=== PATIENT | female | born 1935 | race Caucasian/White ===

== ENCOUNTER 2019-11-10 15:19 | Inpatient (IN) | payer MEDICARE, MEDICAID, SELFPAY ==
[2019-11-10 15:20] VITALS: BMI 27.0
[2019-11-10 15:24] VITALS: BP 193/99; PULSE 93; RESP 20; TEMP 37.7; O2SAT 90
--- NOTE | 2019-11-10 15:26 | XRR_ITS ---
PROCEDURE INFORMATION: Exam: XR Chest, 1 View Exam date and time: 11/10/2019 3:58 PM Age: 84 years old Clinical indication: Fever TECHNIQUE: Imaging protocol: XR of the chest Views: 1 view. COMPARISON: No relevant prior studies available. FINDINGS: Lungs: Unremarkable. No consolidation. Pleural space: Unremarkable. No pleural effusion. No pneumothorax. Heart/Mediastinum: Unremarkable. No cardiomegaly. Bones/joints: Unremarkable. XR/XR chest 1V portable [id number] IMPRESSION: No acute findings.
--- NOTE | 2019-11-10 15:26 | CTR_ITS ---
PROCEDURE INFORMATION: Exam: CT Head Without Contrast Exam date and time: 11/10/2019 4:01 PM Age: 84 years old Clinical indication: Altered mental status/memory loss and fever TECHNIQUE: Imaging protocol: Computed tomography of the head without contrast. Axial, coronal and sagittal reformatted images were created and reviewed. Radiation optimization: All CT scans at this facility use at least one of these dose optimization techniques: automated exposure control; mA and/or kV adjustment per patient size (includes targeted exams where dose is matched to clinical indication); or iterative reconstruction. COMPARISON: No relevant prior studies available. RADIATION DOSE METRICS: Total DLP (mGy-cm): 1386.99 FINDINGS: Brain: Right occipital encephalomalacia, consistent with remote ischemia. Patchy areas of hypoattenuation in the periventricular and subcortical white matter, consistent with chronic small vessel ischemic disease. Focal, well-circumscribed hypodensities in the basal ganglia and thalami, consistent with chronic lacunar infarcts. No CT evidence of acute intracranial hemorrhage or acute territorial infarction. No significant mass effect or midline shift. Basal cisterns patent. Ventricles: Prominence of the cortical sulci, cisterns and ventricular system, consistent with cerebral and cerebellar volume loss. Bones/joints: No acute osseous abnormality. Sinuses: Mild ethmoid mucosal thickening. Mild right sphenoid sinus mucosal thickening. Mastoid air cells: Minimal opacification of the right mastoid air cells. Vasculature: Calcific atherosclerotic disease in the cavernous internal carotid arteries, as well as the vertebro-basilar system. Soft tissues: Grossly unremarkable. CT/CT head wo con* [id number]: 1. No CT evidence of acute intracranial pathology. 2. Additional findings, as above. Radiation Dose CTDIVOL = (mGy): DLP = 1386.99 (mGy-cm)
--- NOTE | 2019-11-10 15:27 | ECG_ITS ---
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 Measurements Intervals [place] Rate: 93 P: 84 UT: 152 QRS: 68 QRSD: 146 T: 11 QT: 366 QTc: 456 Interpretive Statements SINUS RHYTHM INDETERMINATE AXIS RIGHT BUNDLE BRANCH BLOCK [120+ ms QRS DURATION, UPRIGHT V1, 40+ ms S IN I/aVL/V4/V5/V6] No previous ECG available for comparison Electronically Signed On 11-10-2019 16:55:53 CDT by Dereje Whitman M.D. [id number]
--- NOTE | 2019-11-10 15:29 | ED_ITS ---
HPI - Fever General: Chief Complaint: Fever Stated Complaint: FEVER Time Seen by Provider: 11/10/19 15:20 Source: patient and EMS Mode of arrival: EMS Limitations: altered mental status History of Present Illness: HPI Narrative: 84-year-old female who is here from group home with altered mental status along with a fever. She does have a history of dementia and is currently at her baseline. Per group home patient had a temperature there of 101 and had a period of confusion and unresponsiveness. Patient denies any pain or cough. She denies headache or neck pain. She denies any worsening or improving factors. Review of Systems General: Reports: ROS unobtainable due to mental status Const: Reports: fever(s) PFSH ED PFSH: Medical History (Updated 11/10/19 @ 19:00 by Obi Lee MD) Adult onset hypothyroidism Alcoholic dementia Cardiac murmur, unspecified Coagulopathy, thrombocytopenia, transient, remote, resolved Essential (primary) hypertension Lives in assisted living facility Urge incontinence Vitamin D deficiency Walker as ambulation aid Surgical History No pertinent past surgical history Family History Family/Other In good health Social History Smoking and tobacco status: former smoker Quit status (tobacco): has quit using tobacco Alcohol intake: former Year of sobriety/quit date alcohol: 2017 Former alcohol use details: >4 drinks daily Housing: Assisted Living Facility Current gender identity: Female Physical Exam Const: COMMON NORMALS: no acute distress, healthy appearing and alert; negative for patient oriented x3 ORIENTATION/CONSCIOUSNESS: Yes oriented to person; not oriented to place and not oriented to time HENMT: COMMON NORMALS: normocephalic and atraumatic HEAD & SCALP: normocephalic and atraumatic Eye: COMMON NORMALS: Equal, round and reactive pupils present and EOMs intact bilaterally PUPIL: Yes Equal, round and reactive pupils present Neck/C-Spine: COMMON NORMALS: full ROM and supple Chest: COMMONS NORMALS: normal inspection of the chest and normal palpation of entire chest wall Resp: COMMON NORMALS: normal respiratory effort, No retractions, No use of accessory muscles and clear to auscultation bilaterally AUSCULTATION: clear to auscultation bilaterally Cardio: COMMON NORMALS: regular rate and regular rhythm RATE: regular rate RHYTHM: regular rhythm HEART SOUNDS: Murmur heart sound present GI: COMMON NORMALS: Normal to inspection, nondistended, normoactive bowel sounds present, Soft to palpation, non-tender and no masses PALPATION: Yes Soft to palpation Extremity: COMMON NORMALS: normal to inspection and full ROM Neuro: COMMON NORMALS: moves all extremities and no focal motor deficits; negative for patient oriented x3 SENSORIUM/ORIENTATION: Yes alert, Yes shante ented to person, No oriented to place and No oriented to time Psych: COMMON NORMALS: mental status grossly normal, Normal thought process present and cooperative THOUGHT PROCESS: Normal thought process present Skin: COMMON NORMALS: no rashes or lesions noted and no wounds GENERAL SKIN EXAM: no rashes or lesions noted Course Vital Signs: Vital signs: Vital Signs Temperature 99.9 F H 11/10/19 15:24 Pulse Rate 88 11/10/19 18:11 Respiratory Rate 20 H 11/10/19 18:11 Blood Pressure 128/70 11/10/19 18:11 Pulse Oximetry 95 11/10/19 18:11 MDM - Fever MDM Narrative: Medical decision making narrative: Patient presents here with fever along with altered mental status. Patient has no headache or neck pain. Patient has no signs of meningitis. Patient started on IV antibiotics. Patient seen by Dr. Rodriguez who is admitting. Lab Data: Labs: Lab Results 11/10/19 11/10/19 11/10/19 Range/Units 15:30 15:30 15:30 WBC 7.1 (4.0-10.0) 10^3/ uL RBC 3.64 L (4.1-5.3) 10^6/u L Hgb 10.9 L (11.5-15.3) g/dL Hct 34.3 L (37.0-47.0) % MCV 94.2 (81-99) fL MCH 29.9 (28.0-34.0) pg MCHC 31.8 (30.0-36.0) g/dL RDW 12.7 (12.1-15.1) % Plt Count 105 L (130-400) 10^3/c mm MPV 10.1 (7.4-10.4) fL Neut % (Auto) 74.5 % Lymph % (Auto) 14.3 % [place] % (Auto) 10.4 % Eos % (Auto) 0.3 % Baso % (Auto) 0.4 % Neut # (Auto) 5.3 (1.8-7.7) 10^3/u L Lymph # (Auto) 1.0 (0.8-4.8) 10^3/u L [place] # (Auto) 0.7 (0.2-0.9) 10^3/u L Eos # (Auto) 0.0 (0.0-0.8) 10^3/u L Baso # (Auto) 0.0 (0.0-0.1) 10^3/u L Nucleated RBC % (a uto) 0 % Nucleated RBCs # 0.0 /100WBC Sodium 139 (136-145) mmol/L Potassium 4.4 (3.5-5.1) mmol/L Chloride 99 (98-107) mmol/L Carbon Dioxide 27 (22-29) mmol/L Anion Gap 17.4 (5-19) BUN 24 H (8-23) mg/dL Creatinine 1.5 H (0.5-0.9) mg/dL Glucose 162 H (65-115) mg/dL Calculated Osmolal ity 288 (285-295) mOsm/k g Lactate 0.6 (0.5-2.2) mmol/L Calcium 9.7 (8.5-10.5) mg/dL Total Bilirubin 0.4 (0.15-1.2) mg/dL AST 11 (0-32) U/L ALT < 5 (0-33) U/L Alkaline Phosphata se 63 (35-105) IU/L Total Protein 7.8 (6.6-8.7) g/dL Albumin 4.2 (3.5-5.2) g/dL Globulin 3.6 (1.3-4.6) g/dL Urine Color (Yellow) Urine Appearance (CLEAR) Urine pH (5-7) Ur Specific Gravit y (1.005-1.030) Urine Protein (Negative) Urine Glucose (UA) (Normal) Urine Ketones (Negative) Urine Blood (Negative) Urine Nitrate (Negative) Urine Bilirubin (NEGATIVE) Urine Urobilinogen (Negative) mg/dL Ur Leukocyte Richa ase (Negative) Urine RBC (0-2) /hpf Urine WBC (0-5) /hpf Ur Squamous Epith Cells (0-5) Amorphous Sediment Urine Bacteria (NONE) 11/10/19 Range/Units 16:20 WBC (4.0-10.0) 10^3/ uL RBC (4.1-5.3) 10^6/u L Hgb (11.5-15.3) g/dL Hct (37.0-47.0) % MCV (81-99) fL MCH (28.0-34.0) pg MCHC (30.0-36.0) g/dL RDW (12.1-15.1) % Plt Count (130-400) 10^3/c mm MPV (7.4-10.4) fL Neut % (Auto) % Lymph % (Auto) % [place] % (Auto) % Eos % (Auto) % Baso % (Auto) % Neut # (Auto) (1.8-7.7) 10^3/u L Lymph # (Auto) (0.8-4.8) 10^3/u L [place] # (Auto) (0.2-0.9) 10^3/u L Eos # (Auto) (0.0-0.8) 10^3/u L Baso # (Auto) (0.0-0.1) 10^3/u L Nucleated RBC % (a uto) % Nucleated RBCs # /100WBC Sodium (136-145) mmol/L Potassium (3.5-5.1) mmol/L Chloride (98-107) mmol/L Carbon Dioxide (22-29) mmol/L Anion Gap (5-19) BUN (8-23) mg/dL Creatinine (0.5-0.9) mg/dL Glucose (65-115) mg/dL Calculated Osmolal ity (285-295) mOsm/k g Lactate (0.5-2.2) mmol/L Calcium (8.5-10.5) mg/dL Total Bilirubin (0.15-1.2) mg/dL AST (0-32) U/L ALT (0-33) U/L Alkaline Phosphata se (35-105) IU/L Total Protein (6.6-8.7) g/dL Albumin (3.5-5.2) g/dL Globulin (1.3-4.6) g/dL Urine Color Yellow (Yellow) Urine Appearance Hazy A (CLEAR) Urine pH 5 (5-7) Ur Specific Gravit y 1.015 (1.005-1.030) Urine Protein 3+ H (Negative) Urine Glucose (UA) Norm (Normal) Urine Ketones Negative (Negative) Urine Blood 3+ H (Negative) Urine Nitrate Negative (Negative) Urine Bilirubin Neg (NEGATIVE) Urine Urobilinogen Norm (Negative) mg/dL Ur Leukocyte Richa ase Negative (Negative) Urine RBC 80-100 H (0-2) /hpf Urine WBC 0-4 H (0-5) /hpf Ur Squamous Epith Cells 10-15 H (0-5) Amorphous Sediment Not Reportable Urine Bacteria 2+ H (NONE) Imaging Data^: CXR: Radiologist's impression: [place] [address] XRay Report Signed Patient: Bessy Berman Unit #: [id number] : 1935 Age/Sex: 84 / F ADM Date: 11/10/19 Loc: ER Room/Bed: Attending Dr: Ordering Provider/Ordering MD: Obi Lee MD Date of Service: 11/10/19 Procedure(s): XR chest 1V portable [id number] Accession Number(s): [id number] Report Number: [id number] PROCEDURE INFORMATION: Exam: XR Chest, 1 View Exam date and time: 11/10/2019 3:58 PM Age: 84 years old Clinical indication: Fever TECHNIQUE: Imaging protocol: XR of the chest Views: 1 view. COMPARISON: No relevant prior studies available. FINDINGS: Lungs: Unremarkable. No consolidation. Pleural space: Unremarkable. No pleural effusion. No pneumothorax. Heart/Mediastinum: Unremarkable. No cardiomegaly. Bones/joints: Unremarkable. XR/XR chest 1V portable [id number] IMPRESSION: No acute findings. CT Head: Radiologist's impression: con* [id number] Study Date: 11/10/2019 4:04:48 PM Order #: [id number] Report Status: Finalized Reason: fever [facility] [address] [place] [address] CT Scan Report Signed Patient: Bessy Berman Unit #: [id number] : 1935 Age/Sex: 84 / F ADM Date: 11/10/19 Loc: ER Room/Bed: Attending Dr: Ordering Provider/Ordering MD: Obi Lee MD Date of Service: 11/10/19 Procedure(s): CT head wo con* [id number] Accession Number(s): [id number] Report Number: [id number] PROCEDURE INFORMATION: Exam: CT Head Without Contrast Exam date and time: 11/10/2019 4:01 PM Age: 84 years old Clinical indication: Altered mental status/memory loss and fever TECHNIQUE: Imaging protocol: Computed tomography of the head without contrast. Axial, coronal and sagittal reformatted images were created and reviewed. Radiation optimization: All CT scans at this facility use at least one of these dose optimization techniques: automated exposure control; mA and/or kV adjustment per patient size (includes targeted exams where dose is matched to clinical indication); or iterative reconstruction. COMPARISON: No relevant prior studies available. RADIATION DOSE METRICS: Total DLP (mGy-cm): 1386.99 FINDINGS: Brain: Right occipital encephalomalacia, consistent with remote ischemia. Patchy areas of hypoattenuation in the periventricular and subcortical white matter, consistent with chronic small vessel ischemic disease. Focal, well-circumscribed hypodensities in the basal ganglia and thalami, consistent with chronic lacunar infarcts. No CT evidence of acute intracranial hemorrhage or acute territorial infarction. No significant mass effect or midline shift. Basal cisterns patent. Ventricles: Prominence of the cortical sulci, cisterns and ventricular system, consistent with cerebral and cerebellar volume loss. Bones/joints: No acute osseous abnormality. Sinuses: Mild ethmoid mucosal thickening. Mild right sphenoid sinus mucosal thickening. Mastoid air cells: Minimal opacification of the right mastoid air cells. Vasculature: Calcific atherosclerotic disease in the cavernous internal carotid arteries, as well as the vertebro-basilar system. Soft tissues: Grossly unremarkable. CT/CT head wo con* [id number]: 1[address] No CT evidence of acute intracranial pathology. 2. Additional findings, as above. Radiation Dose CTDIVOL = (mGy): DLP = 1386 EKG Data^: EKG 1: Attestation: I personally reviewed and interpreted this EKG as follows: EKG interpretation date: 11/10/19 EKG interpretation time: 15:48 Interpretation: nsr hr [address] or t wave abnormalities qrs 146 qtc 416 Discharge Plan Discharge Patient Disposition: Admitted As Inpatient Clinical Impression: Fever of unknown origin, Altered mental status Condition: Stable Referrals: Anastacio Dias EXECUTIVE DIRECTOR [employer]ET[employer] [Primary Care Provider] - Coding Level of Care Code ED External Auditor for Chg Fwd Exam Comprehensive
[2019-11-10 15:40] LABS: Basophils % 0.4 %; Eosinophils % 0.3 %; Hematocrit 34.3 % (37.0-47.0); Hemoglobin 10.9 g/dL (11.5-15.3); Lymphocytes % 14.3 %; Mean Corpuscular HGB Conc 31.8 g/dL (30.0-36.0); Mean Corpuscular Hemoglobin 29.9 pg (28.0-34.0); Mean Corpuscular Volume 94.2 fL (81-99); Mean Platelet Volume 10.1 fL (7.4-10.4); Monocytes # 0.7 10^3/uL (0.2-0.9); Monocytes % 10.4 %; Neutrophils # 5.3 10^3/uL (1.8-7.7); Neutrophils % 74.5 %; Nucleated Red Blood Cells % 0 %; Platelet Count 105 10^3/cmm (130-400); Red Blood Count 3.64 10^6/uL (4.1-5.3); Red Cell Distribution Width 12.7 % (12.1-15.1); White Blood Count 7.1 10^3/uL (4.0-10.0)
[2019-11-10] MEDS: acetaminophen 325 mg Tablet 650 MG PO (15:57)
[2019-11-10] MEDS: sodium chloride 0.9% 1,000 ML 999 ML IV (15:57)
[2019-11-10 16:07] LABS: Alanine Aminotransferase < 5 U/L (0-33); Albumin Level 4.2 g/dL (3.5-5.2); Alkaline Phosphatase 63 IU/L (35-105); Anion Gap 17.4 (5-19); Aspartate Amino Transferase 11 U/L (0-32); Blood Urea Nitrogen 24 mg/dL (8-23); Calcium 9.7 mg/dL (8.5-10.5); Carbon Dioxide 27 mmol/L (22-29); Chloride 99 mmol/L (98-107); Globulin 3.6 g/dL (1.3-4.6); Glucose 162 mg/dL (65-115); Osmolality Calculated 288 mOsm/kg (285-295); Potassium 4.4 mmol/L (3.5-5.1); Sodium 139 mmol/L (136-145); Total Bilirubin 0.4 mg/dL (0.15-1.2); Total Protein 7.8 g/dL (6.6-8.7)
[2019-11-10 16:09] LABS: Lactate (Lactic Acid level) 0.6 mmol/L (0.5-2.2)
[2019-11-10 16:11] VITALS: RESP 18
[2019-11-10 17:26] LABS: Protein Urine 3+ (Negative); Specific Gravity, Urine 1.015 (1.005-1.030); Urine Appearance Hazy (CLEAR); Urine Color Yellow (Yellow); pH Urine 5 (5-7)
[2019-11-10 17:27] LABS: Add Urine Microscopic? YES; Bilirubin Urine Neg (NEGATIVE); Blood Urine 3+ (Negative); Glucose Urine UA Norm (Normal); Ketones Urine Negative (Negative); Leukocyte Esterase Urine Negative (Negative); Nitrate Urine Negative (Negative); Urobilinogen Urine Norm (Negative)
[2019-11-10 17:35] LABS: Add Urine Culture? No; Bacteria Urine 2+; RBC Urine 80-100 /hpf (0-2); WBC Urine 0-4 /hpf (0-5)
--- NOTE | 2019-11-10 18:03 | P.HP_ITS ---
Providers/Chief Complaint Primary Care Provider: CARIDAD Victoria Chief Complaint: FEVER History of Present Illness Bessy Berman is a 84 year old female that presented from residential care facility where she resides with history of fever of 1-1.7, some shortness of breath following lunch. Nursing staff believes she was doing okay prior to that. She normally has some dementia but can ambulate, take care of bathroom as well as eating. They had not noticed a cough. She has not had any vomiting, diarrhea. She is not prone to aspiration according to the nursing facility staff. She has not had any COVID exposure. She had no obvious abdominal pain. She had not been complaining of headache or neck pain. While in the ER, she has been somewhat lethargic but can awaken. History is very difficult. After a rather extended visit with her I did get her to wake up and she denied any headache, neck pain. She was able to move for me to examine her. Review of Systems General: Reports: ROS unobtainable due to mental status (Thorough review of systems unable secondary to mental status. She specifically denies headache, neck pain, cough. However history is somewhat unreliable.) Medications/Allergies Home Medications Medication Instructions Recorded Confirmed Last Taken Type acetaminophen 500 mg capsule 500 mg PO Q6H PRN cap 05/29/19 11/10/19 11/10/19 History amlodipine 5 mg tablet 5 mg PO QDAY 05/29/19 11/10/19 11/10/19 History cetirizine 10 mg capsule 10 mg PO DAILY cap 05/29/19 11/10/19 11/10/19 History cyanocobalamin (vitamin B-12) 1,000 mcg PO QDAY 05/29/19 11/10/19 11/10/19 History 1,000 mcg tablet cyclobenzaprine 10 mg tablet 10 mg PO Q8H tab 05/29/19 11/10/19 Unknown History diclofenac sodium 1 % topical gel 2 gm TOPICAL Q12H PRN gm 05/29/19 11/10/19 11/10/19 History ergocalciferol (vitamin D2) 1,250 50,000 unit PO .monthly cap 05/29/19 11/10/19 10/17/19 History mcg (50,000 unit) capsule folic acid 1 mg tablet 1 mg PO DAILY 05/29/19 11/10/19 11/10/19 History furosemide 20 mg tablet 20 mg PO QAM 05/29/19 11/10/19 11/10/19 History guaifenesin 100 mg/5 mL oral liquid 200 mg PO Q4H PRN 05/29/19 11/10/19 Unknown History ibuprofen 400 mg tablet 400 mg PO Q8H PRN 05/29/19 11/10/19 Unknown History levothyroxine 25 mcg tablet 25 mcg PO QDAY 05/29/19 11/10/19 11/10/19 History multivitamin 1 tab PO QAM 05/29/19 11/10/19 11/10/19 History risperidone 0.5 mg tablet 0.5 mg PO QDAY 05/29/19 11/10/19 11/10/19 History sertraline 50 mg tablet 50 mg PO QDAY 05/29/19 11/10/19 11/10/19 History thiamine HCl (vitamin B1) 100 mg 100 mg PO QDAY 05/29/19 11/10/19 11/10/19 History tablet triamcinolone acetonide 0.1 % 1 applic TOPICAL QDAY 05/29/19 11/10/19 Unknown History topical cream acetaminophen-codeine 1 tab PO Q4H PRN 11/10/19 11/10/19 Unknown History [Tylenol-Codeine #3] Allergies Allergy/AdvReac Type Severity Reaction Status Date / Time No Known Allergies Allergy Verified 11/10/19 15:54 PFSH Acute PFSH: Medical History Adult onset hypothyroidism Alcoholic dementia Cardiac murmur, unspecified Coagulopathy, thrombocytopenia, transient, remote, resolved Essential (primary) hypertension Lives in assisted living facility Urge incontinence Vitamin D deficiency Walker as ambulation aid Surgical History No pertinent past surgical history Family History Family/Other In good health Social History Smoking and tobacco status: former smoker Quit status (tobacco): has quit using tobacco Alcohol intake: former Year of sobriety/quit date alcohol: 2017 Former alcohol use details: >4 drinks daily Housing: Assisted Living Facility Current gender identity: Female [facility] Information: All past medical history, surgical history family history and social history reviewed but difficult to directly get from the patient secondary to her mental status. Vitals/I&O/Wt Last Vital Signs Temp 99.9 F H 11/10/19 15:24 Pulse 93 11/10/19 15:24 Resp 18 11/10/19 16:11 BP 193/99 11/10/19 15:24 Pulse Ox 90 11/10/19 15:24 11/10/19 11/10/19 11/10/19 06:59 14:59 22:59 Intake Total 1000 / 1000 Balance 1000 / 1000 Weight last 48 hrs Weight 72.575 kg Physical Exam Narrative: EXAM NARRATIVE: General exam is a white female, who appears mildly short of breath who upon prompting can answer a few questions. HEENT: Pupils equally round. Oropharynx clear. Mucous membranes slightly dry Neck is supple, no lymphadenopathy or thyromegaly Cardiovascular borderline tachycardia. Holosystolic murmur. Lungs faint expiratory wheeze heard on the left Abdomen is soft, obese. No obvious tenderness was deferred Extremities no cyanosis clubbing or edema Skin no obvious rash Neuro no obvious focal deficits. She will answer a few questions yes or no but has some obvious confusion currently. Urinary Catheter Management^: Arevalo: Cath Placed During This Visit: yes, but has since been removed by the nurse Reason for Continuing Indwelling Catheter: Decision to DC Catheter Urinary Catheter Date of Insertion: 11/10/19 Urinary Catheter Time of Insertion: 16:37 Date Urinary Catheter Removed: 11/10/19 Time Urinary Catheter Discontinued: 17:17 Data : 11/10/19 15:30 11/10/19 15:30 Micro: Microbiology 11/10/19 15:30 Blood Culture - Preliminary Blood SPECIMEN COLLECTED 11/10/19 15:34 Blood Culture - Preliminary Blood SPECIMEN COLLECTED Other data: CT head nothing acute. Chest x-ray appears crowded but no infiltrate seen by radiologist. LFTs normal. Urinalysis indicates 80-100 whites 2+ bacteria but a fair number of squamous epithelial cells are noted. A&P Assessment and plan (1) Fever: Etiology to be determined. Clinically he may have pneumonia secondary to abnormal lung exam. However with her confusion higher than baseline we will obtain a CT chest abdomen and pelvis to delineate source further. At this point my suspicion for meningitis is low. Blood cultures Urine cultures Initiate vancomycin and Zosyn Check transthoracic echo Rule out COVID Status: Acute (2) Acute kidney injury: Hydration, continue to follow closely Status: Acute (3) Dehydration: See above Status: Acute (4) Encephalopathy acute: Neurologic checks Reevaluation for improvement with treatment of infection Status: Acute Additional A&P Information Murmur. Check echocardiogram considering fever. Dementia Hypothyroidism. Check TSH History of alcoholism Thrombocytopenia, anemia. From my understanding this is chronic. Continue to monitor closely. 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
[2019-11-10] MEDS: vancomycin 1,000 MG in sodium chloride 0.9% 250 ML 250 MG IV (18:09)
[2019-11-10 18:11] VITALS: BP 128/70; PULSE 88; RESP 20; O2SAT 95
--- NOTE | 2019-11-10 18:44 | PC.NURSE ---
Patient swabbed for COVID-19 at this time
[2019-11-10] MEDS: piperacillin-tazobactam 3.375 GM in sodium chloride 0.9% (plus) 50 ML IV (19:36)
[2019-11-10 20:00] VITALS: BP 177/80; PULSE 105; RESP 20; RESP 32; TEMP 36.9; O2SAT 99
[2019-11-10 20:57] VITALS: BP 128/70; PULSE 88; RESP 20; TEMP 37.7; O2SAT 95
[2019-11-10 21:07] VITALS: BP 177/80; PULSE 105; RESP 32; TEMP 36.9; O2SAT 99
--- NOTE | 2019-11-10 22:07 | PC.NURSE ---
Call to [facility] for patient information; they stated to call back in the morning for information needed.
[2019-11-10 22:33] LABS: Ammonia 20 umol/L (11-51)
--- NOTE | 2019-11-10 22:34 | PC.PHAR ---
Vancomycin is dosed at 1250mg IVPB every 36 hours to produce a predicted trough level of 16.97 (population based pharmacokinetitrougc analysis). A trough level has been ordered from the lab to be obtained before the fourth dose to confirm and adjust if needed.
[2019-11-10 22:37] LABS: Thyroid Stimulating Hormone 1.45 uIU/mL (0.27-4.20)
[2019-11-10 23:36] LABS: Erythrocyte Sedimentation Rate 62 mm/hr (0-15)
[2019-11-10] MEDS: heparin 5,000 unit/mL INJ 1 mL 5000 UNIT SUBCUT (23:49)
[2019-11-10] MEDS: sodium chloride 0.9% 1,000 ML 75 ML IV (23:49)
[2019-11-11] VITALS (10 sets, daily range): BP systolic 133–178; BP diastolic 71–86; PULSE 88–134; RESP 17–24; TEMP 36.2–38.8; O2SAT 91–100
[2019-11-11 01:47] LABS: Procalcitonin 0.12 ng/mL (0-0.5)
[2019-11-11] MEDS: piperacillin-tazobactam 3.375 GM in sodium chloride 0.9% (plus) 50 ML IV ×3 (03:39→19:44)
[2019-11-11 06:01] LABS: Basophils % 0.4 %; Hematocrit 34.4 % (37.0-47.0); Hemoglobin 10.7 g/dL (11.5-15.3); Lymphocytes # 0.5 10^3/uL (0.8-4.8); Lymphocytes % 5.3 %; Mean Corpuscular HGB Conc 31.1 g/dL (30.0-36.0); Mean Corpuscular Hemoglobin 29.4 pg (28.0-34.0); Mean Corpuscular Volume 94.5 fL (81-99); Mean Platelet Volume 10.6 fL (7.4-10.4); Monocytes # 0.7 10^3/uL (0.2-0.9); Monocytes % 7.1 %; Neutrophils # 8.6 10^3/uL (1.8-7.7); Neutrophils % 86.7 %; Nucleated Red Blood Cells % 0 %; Platelet Count 110 10^3/cmm (130-400); Red Blood Count 3.64 10^6/uL (4.1-5.3); Red Cell Distribution Width 12.7 % (12.1-15.1); White Blood Count 9.9 10^3/uL (4.0-10.0)
[2019-11-11 06:20] LABS: Alanine Aminotransferase < 5 U/L (0-33); Albumin Level 3.8 g/dL (3.5-5.2); Alkaline Phosphatase 61 IU/L (35-105); Aspartate Amino Transferase 16 U/L (0-32); Blood Urea Nitrogen 20 mg/dL (8-23); Calcium 9.3 mg/dL (8.5-10.5); Carbon Dioxide 23 mmol/L (22-29); Chloride 101 mmol/L (98-107); Globulin 3.6 g/dL (1.3-4.6); Glucose 212 mg/dL (65-115); Osmolality Calculated 285 mOsm/kg (285-295); Sodium 136 mmol/L (136-145); Total Bilirubin 0.7 mg/dL (0.15-1.2); Total Protein 7.4 g/dL (6.6-8.7)
--- NOTE | 2019-11-11 09:51 | PC.CHAP ---
Pastoral Care Encounter/Spiritual Assessment Type of Contact [] Declined bobbin loose end finder visit [] Patient/Family/Request visit [] Outpatient visit [] Follow-up visit [] Physician referral [] Code/Alert [x] Routine visit [] Staff referral [] Actively dying [] Patient sleeping [] Family support [] [] Out of room [] Palliative care [] [] Receiving care in room [] Pre-surgical visit [] Trauma [] Long length of stay [] ICU visit [x] Other: isolation Relational/Emotional Strength [] Patient feels connected with others/family/visitors/staff [] Distress [] Loneliness/isolation [] Abandonment Spirituality of Patient [] Person of Maria Teresa [] Attends Buddhism of their Maria Teresa [] Believes in Prayer [] Reads Bible or Quaker materials [] There are Spiritual issues to be addressed Pipe Testing Technician Interventions [] Prayer [] Active listening [] Non-anxious presence [] Spiritual/emotional support [] Crisis/trauma care [] Spiritual counseling [] Bereavement support [] Provided bereavement packet [] Provided Bible/devotional materials [] Provided toy/stuffed animal, coloring book to patient or family member [] Provided Communion [] Anointing/Rough And Ready [] Salvation [x] Completed spiritual assessment [] Other: Impact on Illness or Injury [] Angry [] Fearful [] Anxious [] Often cries [] Exhaustion [] Unable to work [] Unable to attend jewish [] Unable to walk/stand [] Unable to read [] Unable to drive [] Unable to eat/drink [] Unable to sleep [] Unable to be with family [] Patient intubated [] Other: Summary Time spent with patient
[2019-11-11] MEDS: iodixanol 320 mg/mL 100mL Btl IV (10:15)
--- NOTE | 2019-11-11 11:32 | P.PN_ITS ---
Subjective Subjective: Interval history: Bessy was agitated this morning. She is able to answer yes or no on occasion. Obviously very confused. Medications: Reviewed: Yes Vitals/I&O/Wt Last Vital Signs Temp 101.9 F H 11/11/19 11:20 Pulse 100 11/11/19 11:20 Resp 22 H 11/11/19 11:20 BP 144/86 11/11/19 11:20 Pulse Ox 96 11/11/19 11:20 11/10/19 11/11/19 11/11/19 22:59 06:59 14:59 Intake Total 1250 / 1250 Output Total 400 / 400 Balance 850 / 850 Weight last 48 hrs Weight 72.575 kg Physical Exam Narrative: EXAM NARRATIVE: General exam mild respiratory distress Cardiovascular borderline tachycardia. Holosystolic murmur. Lungs a few bilateral wheezes. Abdomen is soft, obese. No obvious tenderness Extremities no cyanosis clubbing or edema Skin no obvious rash Neuro no obvious focal deficits. Still confused. Urinary Catheter Management^: Arevalo: Cath Placed During This Visit: yes, but has since been removed by the nurse Reason for Continuing Indwelling Catheter: Decision to DC Catheter Urinary Catheter Date of Insertion: 11/10/19 Urinary Catheter Time of Insertion: 16:37 Date Urinary Catheter Removed: 11/10/19 Time Urinary Catheter Discontinued: 17:17 Data : 11/11/19 05:34 11/11/19 05:34 Micro: Microbiology 11/10/19 15:30 Blood Culture - Preliminary Blood SPECIMEN COLLECTED 11/10/19 15:34 Blood Culture - Preliminary Blood SPECIMEN COLLECTED Other data: CT demonstrates a large mass in pelvis likely fibroid. Perinephric stranding. Bilateral irregular infiltrates at the lung bases. COVID is pending A&P Assessment and plan (1) Fever: Etiology to be determined. CT shows some evidence for pneumonia. Could be UTI considering abnormal urine, mild perinephric bilateral stranding. Awaiting urine cultures Blood cultures negative to date Suspicion for meningitis is low Urine cultures Continue vancomycin and Zosyn Await COVID Status: Acute (2) Acute kidney injury: Reduce fluids. She has some evidence on CT of mild fluid overload. Lasix x1 A fair amount of urine retention is noted on CT PET scan. Place Arevalo. Status: Acute (3) Dehydration: See above Status: Acute (4) Encephalopathy acute: Neurologic checks Reevaluation for improvement with treatment of infection Currently, no significant improvement. Status: Acute Additional A&P Information Pelvic mass. Consider further outpatient work-up. Cardiac murmur. Awaiting echocardiogram Dementia Hypothyroidism. Check TSH History of alcoholism Thrombocytopenia, anemia. From my understanding this is chronic. Continue to monitor closely. Overall no change Allow natural per her nursing facility records Heparin for DVT prophylaxis Attestations Medical Necessity Statement*: Needs continued hospital stay for IV antibiotics secondary to fever suspected to be secondary to pneumonia and UTI. Coding Level of Care Code Acute Pharmacy Technologist for Chg Fwd Diagnoses Fever R50.9 Acute kidney injury N17.9 Dehydration E86.0 Encephalopathy acute G93.40
[2019-11-11] MEDS: OLANZapine 10 mg VIAL 5 MG IM (13:43)
[2019-11-11] MEDS: FUROsemide 10 mg/mL SDV 2mL 40 MG IVP (14:11)
[2019-11-11] MEDS: FUROsemide 10 mg/mL SDV 4mL 40 MG IVP ×2 (14:23→14:24)
[2019-11-11] MEDS: sodium chloride 0.9% 1,000 ML 75 ML IV (19:45)
[2019-11-11] MEDS: heparin 5,000 unit/mL INJ 1 mL 5000 UNIT SUBCUT (19:45)
--- NOTE | 2019-11-11 21:07 | CT_ITS ---
WS: [id number] CT CHEST, ABDOMEN AND PELVIS WITH CONTRAST HISTORY: fever TECHNIQUE: Contiguous 5 mm axial imaging performed through the chest, abdomen and pelvis IV contrast, oral contrast has not been provided. Coronal and sagittal reformats chest. Coronal and sagittal refo rmats through the abdomen and pelvis. All CT scans at [facility] use at least one of thes e dose optimization techniques: automated exposure control; mA and/or kV adjustment per patient size (includes targeted exams where dose is matched to clinical indication); or iterative reconstruction. CONTRAST: Visipaque 320; 95 mL IV. DLP: 1469.35 mGy.cm COMPARISON: None available. Study is degraded by motion artifact. Chest CT: Mild haziness and groundglass attenuation at the lung bases with small peripheral opacifica tions in the posterior superior RIGHT lower lobe. Subsegmental RIGHT basilar atelectasis. No signific ant pleural effusion or pericardial effusion. LEFT heart chambers are moderately enlarged. Scattered calcification within the aorta. There is aneurysmal dilatation of the descending aorta with a large a mount of thrombus. Diameter of the thrombus in the distal descending aorta is 9.5 mm. Diameter of the distal aorta is 14.5 cm. Bovine arch. Extensive coronary artery calcifications. No mediastinal adeno karli. Abdomen CT: Hepatic and splenic granulomata. Cholelithiasis without acute cholecystitis. Mild atrophy of the pancreas. No adrenal mass. Bilateral perinephric stranding with parapelvic cysts. Bilateral h ypoattenuating lesions within each kidney are probably cysts. Majority of these are too small to zackery acterize and also compromised by motion artifact. Extensive atherosclerosis aorta with no dilatation. No ascites or adenopathy in the abdomen. No GI tract obstruction. Sigmoid diverticulosis. Pelvic CT: Large mass in the central pelvis extends over length of 7.4 cm x 6.6 x 8.8 cm. There are s cattered calcifications and variable density. This probably represents a fibroid. Neoplasm such as en dometrial neoplasm not completely excluded. There is an additional cystic mass in the LEFT adnexa tootie suring 5.2 x 3.6 cm. Negative urinary bladder. No free fluid or adenopathy. Asymmetric appearance of the obturator body sander with the RIGHT being larger than the LEFT. Increase in thoracic kyphosis and lumbar lordosis. Extensive degenerative spondylitic changes in the spine. No osteoblastic or osteolytic bone disease. CT/CT chest abd pel w con* IMPRESSION: 1. Mild interstitial edema and scattered irregular opacifications at the lung bases. Mild edema with post infectious/inflammatory changes. 2. Large pelvic mass measuring 7.4 x 6.6 x 8.8 cm. Favor this is probably a fi broid. Neoplasm or endometrial neoplasm cannot be excluded. 3. Cholelithiasis without acute cholecystitis. 4. Perinephric stranding, bilaterally. This can be is chronic finding but also could be related to urinary tract infection. 5. Descending thoracic aortic aneurysm with a large amount of thrombus and willie cified plaque. Maximum diameter 4.5 cm.
[2019-11-12] VITALS (11 sets, daily range): BP systolic 122–137; BP diastolic 66–84; PULSE 94–115; RESP 22–28; TEMP 36.4–37.8; O2SAT 88–94
[2019-11-12 02:25] LABS: Coronavirus Lab Test PTC Negative
[2019-11-12] MEDS: acetaminophen 325 mg Tablet 650 MG PO ×2 (03:08→23:11)
[2019-11-12] MEDS: piperacillin-tazobactam 3.375 GM in sodium chloride 0.9% (plus) 50 ML IV ×3 (03:08→21:31)
[2019-11-12 05:25] LABS: Basophils % 0.2 %; Hematocrit 32.7 % (37.0-47.0); Hemoglobin 9.9 g/dL (11.5-15.3); Lymphocytes # 0.8 10^3/uL (0.8-4.8); Lymphocytes % 8.6 %; Mean Corpuscular HGB Conc 30.3 g/dL (30.0-36.0); Mean Corpuscular Hemoglobin 29.6 pg (28.0-34.0); Mean Corpuscular Volume 97.9 fL (81-99); Mean Platelet Volume 11.3 fL (7.4-10.4); Monocytes # 0.9 10^3/uL (0.2-0.9); Monocytes % 10.3 %; Neutrophils # 7.16 10^3/uL (1.8-7.7); Neutrophils % 80.5 %; Nucleated Red Blood Cells % 0 %; Platelet Count 101 10^3/cmm (130-400); Red Blood Count 3.34 10^6/uL (4.1-5.3); Red Cell Distribution Width 12.9 % (12.1-15.1); White Blood Count 8.9 10^3/uL (4.0-10.0)
[2019-11-12 05:29] LABS: Alanine Aminotransferase 11 U/L (0-33); Albumin Level 3.3 g/dL (3.5-5.2); Alkaline Phosphatase 50 IU/L (35-105); Anion Gap 16.5 (5-19); Aspartate Amino Transferase 38 U/L (0-32); Blood Urea Nitrogen 38 mg/dL (8-23); Calcium 8.7 mg/dL (8.5-10.5); Carbon Dioxide 24 mmol/L (22-29); Chloride 103 mmol/L (98-107); Globulin 3.7 g/dL (1.3-4.6); Glucose 200 mg/dL (65-115); Osmolality Calculated 293 mOsm/kg (285-295); Potassium 3.5 mmol/L (3.5-5.1); Sodium 140 mmol/L (136-145); Total Bilirubin 0.5 mg/dL (0.15-1.2)
--- NOTE | 2019-11-12 07:00 | USCV_ITS ---
Bessy Berman Age: 84 Gender: F : 1935 Exam Date: 11/12/2019 07:03 Ordering Phys: Pako Rodriguez MD Technologist: Laquita Rivera [place] [facility] [place]: CHF BP: / HR: Rhythm: Technical Quality: MEASUREMENTS (Male / Female) Normal Values 2D ECHO LV Diastolic Diameter PLAX 3.6 cm 4.2 - 5.9 / 3.9 - 5.3 cm LV Systolic Diameter PLAX 3.1 cm IVS Diastolic Thickness 1.1 cm 0.6 - 1.0 / 0.6 - 0.9 cm IVS Systolic Thickness 1.6 cm LVPW Diastolic Thickness 0.9 cm 0.6 - 1.0 / 0.6 - 0.9 cm LVPW Systolic Thickness 1.6 cm LV Ejection Fraction 2D Teich 33.0 % LV Ejection Fraction MOD 2C 70.9 % LV Ejection Fraction 2C AL 71.3 % LA Diameter 3.5 cm M-MODE LV Diastolic Diameter MM 4.9 cm 4.2 - 5.9 / 3.9 - 5.3 cm LV Systolic Diameter MM 3.9 cm LV Ejection Fraction MM Teich 42.7 % IVS Diastolic Thickness MM 0.7 cm 0.6 - 1.0 / 0.6 - 0.9 cm IVS Systolic Thickness MM 1.1 cm LVPW Diastolic Thickness MM 1.2 cm 0.6 - 1.0 / 0.6 - 0.9 cm LVPW Systolic Thickness MM 1.5 cm Aortic Annulus Diameter 2.5 cm LA Ao Ratio MM 1.4 MV E Point Septal Separation 0.9 cm DOPPLER LVOT Peak Velocity 79.0 cm/s FINDINGS Left Ventricle Normal left ventricular cavity size. Moderately reduced left ventricular systolic function. Global wall motion abnormalities. Left ventricular ejection fraction is estimated at 42 %. Grade II/IV diastolic dysfunction, moderately elevated filling pressures. Right Ventricle The right ventricle is normal in size and function. RVSP could not be calculated due to incomplete tricuspid regurgitation velocity profile. Right Atrium The right atrium is normal in size. Left Atrium Severely increased left atrial size. Mitral Valve Severely thickened mitral valve. Severe mitral annular calcification. No mitral valve stenosis. Moderate mitral valve regurgitation. Aortic Valve Severe aortic valve calcification. Severe aortic valve stenosis, mean gradient 37 mmHg, AVERY 0.44 cm squared. Velocity across the aortic valve is 4.4 m/s Tricuspid Valve Structurally normal tricuspid valve without significant stenosis or regurgitation. Pulmonic Valve Structurally normal pulmonic valve without significant stenosis. There is no pulmonic regurgitation. Pericardium Normal pericardium without effusion. Aorta Normal ascending aorta dimension. CONCLUSIONS 1-Normal left ventricular cavity size. Moderately reduced left ventricular systolic function. Global wall motion abnormalities. Left ventricular ejection fraction is estimated at 42 %. Grade II/IV diastolic dysfunction, moderately elevated filling pressures. 2-Severe aortic valve calcification. Severe aortic valve stenosis, mean gradient 37 mmHg, AVERY 0.44 cm squared. Velocity across the aortic valve is 4.4 m/s. 3-Severely thickened mitral valve. Severe mitral annular calcification. No mitral valve stenosis. Moderate mitral valve regurgitation. 4-Severely increased left atrial size. 5-The right ventricle is normal in size and function. RVSP could not be calculated due to incomplete tricuspid regurgitation velocity profile. 6-There is no pericardial effusion. 7-There are no prior echocardiogram studies to compare. Daron Gillespie MD (Electronically Signed) Final Date: 12 November 2019 22:04 S
[2019-11-12] MEDS: OLANZapine 10 mg VIAL 5 MG IM (08:29)
--- NOTE | 2019-11-12 08:33 | PC.NURSE ---
UPON ARRIVAL TO PT ROOM NURSE OBSERVED PT CONFUSED, IRRITABLE AND YELLING AT 1:1 SITTER. PT WAS ATTEMPTING TO PULL HER NUNEZ CATHETER OUT AND TRYING TO GET OUT OF BED. NURSE ATTEMPTED TO REDIRECT PT AND THE PT CONTINUED TO TRY TO GET OUT OF BED AND YELLING AT NURSE AND 1:[address] DENNEY NOTIFIED AND ORDERS RECIEVED. WILL CONTINUE TO MONITOR PT STATUS.
[2019-11-12] MEDS: heparin 5,000 unit/mL INJ 1 mL 5000 UNIT SUBCUT ×2 (09:59→21:31)
--- NOTE | 2019-11-12 12:25 | PM.PN ---
Subjective Subjective: Interval history: Bessy was agitated this morning. A dose of Zyprexa was given. Medications: Reviewed: Yes Vitals/I&O/Wt Last Vital Signs Temp 98.3 F 11/12/19 08:00 Pulse 113 H 11/12/19 08:00 Resp 22 H 11/12/19 08:00 BP 122/66 11/12/19 08:00 Pulse Ox 91 11/12/19 07:38 11/11/19 11/12/19 11/12/19 22:59 06:59 14:59 Intake Total 50 / 1100 50 / 1150 50 / 50 Output Total 375 / 375 300 / 675 Balance -325 / 725 -250 / 475 50 / 50 Weight last 48 hrs Weight 72.575 kg Physical Exam Narrative: EXAM NARRATIVE: General exam mild respiratory distress, agitation noted Cardiovascular borderline tachycardia. Holosystolic murmur. Lungs a few bilateral wheezes. Abdomen is soft, obese. No obvious tenderness Extremities no cyanosis clubbing or edema Skin no obvious rash Neuro no obvious focal deficits. Still confused. Urinary Catheter Management^: Arevalo: Cath Placed During This Visit: yes, but has since been removed by the nurse Reason for Continuing Indwelling Catheter: Perioperative Use in Selected Surgeries Urinary Catheter Date of Insertion: 11/10/19 Urinary Catheter Time of Insertion: 16:37 Date Urinary Catheter Removed: 11/10/19 Time Urinary Catheter Discontinued: 17:17 Data : 11/12/19 04:28 11/12/19 04:28 Micro: Microbiology 11/10/19 16:20 Urine Culture - Preliminary Urine Catheterized 11/10/19 15:30 Blood Culture - Preliminary Blood NEGATIVE TO DATE 11/10/19 15:34 Blood Culture - Preliminary Blood NEGATIVE TO DATE A&P Assessment and plan (1) Fever: Etiology to be determined. Fever has defervesced CT shows some evidence for pneumonia. Could be UTI considering abnormal urine, mild perinephric bilateral stranding. Urine and blood cultures negative to date Suspicion for meningitis is low. No neck tenderness. Continue vancomycin and Zosyn COVID is negative Repeat chest x-ray today. Status: Acute (2) Acute kidney injury: Renal function worse. Arevalo placed yesterday for concerns of possible urine retention Initiate low-dose fluids today. Status: Acute (3) Dehydration: May have some recurrence as p.o. intake is poor Status: Acute (4) Encephalopathy acute: Neurologic checks Reevaluation for improvement with treatment of infection Currently, no significant improvement. We will try to restart her home psychiatric medication Status: Acute Additional A&P Information Dyspnea. Check BNP. Check chest x-ray for reevaluation of pneumonia. Speech therapy consultation to see if she is safe to eat. Pelvic mass. Consider further outpatient work-up. Made family aware. Cardiac murmur. Awaiting echocardiogram. Check BNP on blood in lab Dementia Hypothyroidism. Check TSH History of alcoholism Thrombocytopenia, anemia. From my understanding this is chronic. Continue to monitor closely. Overall no change Allow natural per her nursing facility records Heparin for DVT prophylaxis Attestations Medical Necessity Statement*: Needs continued hospital stay for IV antibiotics secondary to fever attributed at this point to pneumonia. Coding Level of Care Code Acute Cement Based Materials Pump Tender for Daniela Kaur Diagnoses Fever R50.9 Acute kidney injury N17.9 Dehydration E86.0 Encephalopathy acute G93.40
--- NOTE | 2019-11-12 12:28 | XRR_ITS ---
PROCEDURE INFORMATION: Exam: XR Chest, 1 View Exam date and time: 11/12/2019 1:15 PM Age: 84 years old Clinical indication: Patient HX: PT from [facility] with altered mental status with fever. Confusion; Additional info: Dyspnea TECHNIQUE: Imaging protocol: XR of the chest Views: 1 view. COMPARISON: CR XR chest 1V portable [id number] 11/10/2019 3:46 PM FINDINGS: Lungs: There is right hilar vascular congestion consistent with pulmonary vascular hypertension. Low lung volumes are present. Parenchymal densities seen in the right lower lobe possible pneumonia. Pleural space: Unremarkable. No pleural effusion. No pneumothorax. Heart/Mediastinum: There is cardiomegaly for projection. Calcified granuloma is seen in the left hilum stable since prior Bones/joints: Unremarkable. XR/XR chest 1V portable [id number] IMPRESSION: 1. Right hilar pulmonary vascular hypertension. 2. Low lung volumes are seen. 3. Cardiomegaly for projection. 4. Calcified granuloma left hilum stable since prior 5. Parenchymal density right lower lobe likely pneumonia
[2019-11-12 15:38] LABS: NT Pro B Type Natriuretic Pept 70000 pg/mL (0-450)
[2019-11-12] MEDS: ipratropium-albuterol 3 mL Neb INHALATION ×2 (17:28→21:34)
--- NOTE | 2019-11-12 17:29 | PC.SLP ---
Attempted to evaluate patient, however, her 1:1 sitter reported she just went to sleep and preferred that patient not be awakened. Will attempt to assess the patient 11/13/19.
[2019-11-12] MEDS: FUROsemide 10 mg/mL SDV 4mL 40 MG IVP (17:47)
[2019-11-12] MEDS: linezolid premix 600 MG/300 ML PREMIX 300 MG IV (18:00)
[2019-11-13] VITALS (9 sets, daily range): BP systolic 100–121; BP diastolic 56–69; PULSE 73–94; RESP 16–28; TEMP 36.4–36.8; O2SAT 90–99
--- NOTE | 2019-11-13 00:50 | PC.NURSE ---
Pt struggling to get comfortable, pt trying to pull at tubes and blankets, angrily stating I have to go to the bathroom! pt reminded that she has a catheter and it is continually draining her bladder. pt still trying to crawl out of bed. PSA unable to console pt. pt stood up with moderate to maximum two assist and moved to recliner. pt was able to fall asleep and rate of respirations have decreased with ease of breathing. pt stated she was more comfortable.
[2019-11-13] MEDS: piperacillin-tazobactam 3.375 GM in sodium chloride 0.9% (plus) 50 ML IV (03:47)
[2019-11-13] MEDS: ipratropium-albuterol 3 mL Neb INHALATION ×2 (03:58→09:36)
[2019-11-13 05:01] LABS: Basophils % 0.3 %; Eosinophils # 0.2 10^3/uL (0.0-0.8); Eosinophils % 1.6 %; Hematocrit 32.7 % (37.0-47.0); Lymphocytes # 1.6 10^3/uL (0.8-4.8); Lymphocytes % 14.2 %; Mean Corpuscular HGB Conc 30.6 g/dL (30.0-36.0); Mean Corpuscular Hemoglobin 30.6 pg (28.0-34.0); Mean Platelet Volume 11.3 fL (7.4-10.4); Monocytes # 1.2 10^3/uL (0.2-0.9); Monocytes % 10.2 %; Neutrophils # 8.41 10^3/uL (1.8-7.7); Neutrophils % 72.9 %; Nucleated Red Blood Cells % 0 %; Platelet Count 141 10^3/cmm (130-400); Red Blood Count 3.27 10^6/uL (4.1-5.3); White Blood Count 11.5 10^3/uL (4.0-10.0)
[2019-11-13] MEDS: linezolid premix 600 MG/300 ML PREMIX 300 MG IV (05:03)
[2019-11-13] MEDS: acetaminophen 325 mg Tablet 650 MG PO (05:16)
[2019-11-13 05:42] LABS: Alanine Aminotransferase 14 U/L (0-33); Albumin Level 3.5 g/dL (3.5-5.2); Alkaline Phosphatase 47 IU/L (35-105); Anion Gap 19.7 (5-19); Aspartate Amino Transferase 39 U/L (0-32); Blood Urea Nitrogen 56 mg/dL (8-23); Calcium 9.3 mg/dL (8.5-10.5); Carbon Dioxide 25 mmol/L (22-29); Chloride 105 mmol/L (98-107); Creatinine Clr Calc Pharmacy 14.8642; Globulin 3.9 g/dL (1.3-4.6); Glucose 210 mg/dL (65-115); Osmolality Calculated 307 mOsm/kg (285-295); Potassium 3.7 mmol/L (3.5-5.1); Sodium 146 mmol/L (136-145); Total Bilirubin 0.5 mg/dL (0.15-1.2); Total Protein 7.4 g/dL (6.6-8.7)
--- NOTE | 2019-11-13 09:00 | P.PN_ITS ---
Subjective Subjective: Interval history: Patient sleeping when I enter the room. From my understanding she was very agitated earlier. She had not received any sedating medication Medications: Reviewed: Yes Vitals/I&O/Wt Last Vital Signs Temp 97.5 F L 11/13/19 07:49 Pulse 76 11/13/19 07:49 Resp 16 11/13/19 07:49 BP 100/62 11/13/19 07:49 Pulse Ox 98 11/13/19 07:49 11/12/19 11/13/19 11/13/19 22:59 06:59 14:59 Intake Total 300 / 400 50 / 450 Output Total 400 / 400 300 / 700 Balance -100 / 0 -250 / -250 Physical Exam Narrative: EXAM NARRATIVE: General exam sleeping Cardiovascular regular rate and rhythm. Holosystolic murmur. Lungs clear today Abdomen is soft, obese. No obvious tenderness Extremities no cyanosis clubbing or edema Urinary Catheter Management^: Arevalo: Cath Placed During This Visit: yes, but has since been removed by the nurse Reason for Continuing Indwelling Catheter: Other Urinary Catheter Date of Insertion: 11/10/19 Urinary Catheter Time of Insertion: 16:37 Date Urinary Catheter Removed: 11/10/19 Time Urinary Catheter Discontinued: 17:17 Data : 11/13/19 04:14 11/13/19 04:14 Micro: Microbiology 11/10/19 16:20 Urine Culture - Final Urine Catheterized A&P Assessment and plan (1) Fever: Etiology to be determined. Fever has defervesced CT shows some evidence for pneumonia. Could be UTI considering abnormal urine, mild perinephric bilateral stranding. Urine and blood cultures negative to date Suspicion for meningitis is low. No neck tenderness. Currently on Zosyn and linezolid. MRSA PCR pending COVID is negative Chest x-ray yesterday demonstrated right lower lobe pneumonia, fluid overload. She received Lasix yesterday, and renal function is worse today. Status: Acute (2) Acute kidney injury: Renal function continues to worsen. Blood pressure is now lower. She had significant signs of overt heart failure on chest x-ray yesterday, clinical exam, as well as BNP. Continue Arevalo Secondary to severity of renal function worsening and lower urine output this morning she is obviously prerenal. This is in the large part secondary to her severe aortic stenosis now found on echo. Status: Acute (3) Dehydration: Present on admission. Now intravascular dry which is helped her heart failure significantly but worsened her renal function. Unfortunately the perfusion to her kidneys is poor secondary to severe aortic stenosis. Status: Acute (4) Encephalopathy acute: Continues. Status: Acute Additional A&P Information Acute systolic and valvular heart failure. Echocardiogram has been completed and demonstrates an ejection fraction of approximately 42%, 2/4 diastolic dysfunction and severe aortic valve stenosis with an approximate valve area of 0.44. Moderate mitral valve regurgitation is also noted. I have had a long discussion with her family this morning regarding the severity of the aortic stenosis, and secondary to her current and past mental status she is not a good candidate for any aortic valve replacement either by open procedure or TAVR. Family is considering comfort measures. Lower today and with worsening renal function will have to add a small amount of fluid back. Her current valvular heart disease is volume dependent for perfusion to her kidneys. Pelvic mass. Consider further outpatient work-up. Made family aware. Cardiac murmur. Awaiting echocardiogram. Check BNP on blood in lab Dementia Hypothyroidism. Check TSH History of alcoholism Thrombocytopenia, anemia. From my understanding this is chronic. Continue to monitor closely. Overall no change Allow natural per her nursing facility records. Family considering transition to comfort measures. Heparin for DVT prophylaxis Attestations Medical Necessity Statement*: Needs continued hospital stay secondary to his acute renal failure, heart failure, severe aortic stenosis. Coding Level of Care Code Acute Director Of Teenage Activities for Daniela Kaur Diagnoses Fever R50.9 Acute kidney injury N17.9 Dehydration E86.0 Encephalopathy acute G93.40
[2019-11-13] MEDS: sodium chloride 0.9% 250 ML IV (10:29)
[2019-11-13] MEDS: heparin 5,000 unit/mL INJ 1 mL 5000 UNIT SUBCUT (10:38)
[2019-11-13] MEDS: LORazepam 2 mg/mL INJ 1 mL 1 MG IVP (12:48)
--- NOTE | 2019-11-13 14:41 | PC.SOCIAL ---
IM follow up discussed this with Son Edmond. He verbalized understanding. Patient is going to comfort care. He really wants [facility]. Will follow up.
[2019-11-13] MEDS: LORazepam 2 mg/mL INJ 1 mL 1 MG PO ×2 (18:04→22:36)
[2019-11-14] VITALS (7 sets, daily range): BP systolic 129; BP diastolic 69; PULSE 94; RESP 16–32; TEMP 37.5; O2SAT 90–95
--- NOTE | 2019-11-14 11:00 | P.PN_ITS ---
Subjective Subjective: Interval history: Bessy was not responsive when I saw her this morning. She did receive some pain medicine through the night and some Ativan last night. She was changed to comfort measures yesterday considering her renal failure, severe aortic stenosis, severe dementia. Medications: Reviewed: Yes Vitals/I&O/Wt Last Vital Signs Temp 97.6 F 11/13/19 11:11 Pulse 80 11/13/19 11:11 Resp 32 H 11/14/19 04:14 BP 121/69 11/13/19 11:11 Pulse Ox 90 11/14/19 04:14 11/13/19 11/14/19 11/14/19 22:59 06:59 14:59 Intake Total 0 / 240 600 / 600 Output Total 300 / 300 250 / 550 Balance -300 / -60 -250 / -310 600 / 600 Physical Exam Narrative: EXAM NARRATIVE: General e not responsive for exam Cardiovascular regular rate and rhythm. Holosystolic murmur. Lungs clear today. Elevated respiratory rate noted Abdomen is soft, obese. No obvious tenderness Extremities no cyanosis clubbing or edema Urinary Catheter Management^: Arevalo: Cath Placed During This Visit: yes, but has since been removed by the nurse Reason for Continuing Indwelling Catheter: Other Urinary Catheter Date of Insertion: 11/10/19 Urinary Catheter Time of Insertion: 16:37 Date Urinary Catheter Removed: 11/10/19 Time Urinary Catheter Discontinued: 17:17 Data : 11/13/19 04:14 11/13/19 04:14 Micro: Microbiology 11/13/19 05:25 MRSA Culture - Final Nose 11/10/19 16:20 Urine Culture - Final Urine Catheterized A&P Assessment and plan (1) Fever: Consistent with pneumonia. MRSA PCR negative Was on Zosyn and linezolid, but these have been discontinued as she has been moved to comfort measures. Urine and blood cultures have shown no growth. Covid 19 was negative. Status: Acute (2) Acute kidney injury: Renal function worsened while in the hospital and creatinine was up to 2.8 on last check November 12. Secondary to severity of renal function worsening and lower urine output this morning she is obviously prerenal. This is in the large part secondary to her severe aortic stenosis now found on echo. Consistent with cardiorenal syndrome Status: Acute (3) Dehydration: Present on admission. Now intravascular dry which is helped her heart failure significantly but worsened her renal function. Unfortunately the perfusion to her kidneys is poor secondary to severe aortic stenosis. Status: Acute (4) Encephalopathy acute: Continues. Status: Acute Additional A&P Information Acute systolic and valvular heart failure. Echocardiogram has been completed and demonstrates an ejection fraction of approximately 42%, 2/4 diastolic dysfunction and severe aortic valve stenosis with an approximate valve area of 0.44. Moderate mitral valve regurgitation is also noted. I have had a long discussion with her family this morning regarding the severity of the aortic stenosis, and secondary to her current and past mental status she is not a good candidate for any aortic valve replacement either by open procedure or TAVR. Family has moved her to comfort measures and these are being provided. At this point she has not been a candidate for transfer to retirement facility for comfort. Pelvic mass. Consider further outpatient work-up. Made family aware. Cardiac murmur. Consistent with aortic stenosis Dementia Hypothyroidism. Check TSH History of alcoholism Thrombocytopenia, anemia. Chronic Allow natural per her nursing facility records. Transition to comfort measures. She appears comfortable currently. Heparin for DVT prophylaxis Attestations Medical Necessity Statement*: Needs continued hospitalization for comfort care secondary multiorgan system failure including renal failure, heart failure, severe aortic valve stenosis, and underlying severe dementia. Coding Level of Care Code Acute Drapery And Upholstery Measurer for Daniela Kaur Diagnoses Fever R50.9 Acute kidney injury N17.9 Dehydration E86.0 Encephalopathy acute G93.40
--- NOTE | 2019-11-14 11:37 | PC.NURSE ---
Family called and informed they are allowed to come visit pt since she is now on comfort measures only. Security and entrance staff informed.
[2019-11-15] VITALS (8 sets, daily range): BP systolic 118–150; BP diastolic 70–85; PULSE 72–84; RESP 16–19; TEMP 36.7–37.6; O2SAT 95–98
--- NOTE | 2019-11-15 10:43 | PM.PN ---
Subjective Subjective: Interval history: Bessy will open her eyes to verbal stimuli but otherwise does not say any words. She appears comfortable. Medications: Reviewed: Yes Vitals/I&O/Wt Last Vital Signs Temp 98.8 F 11/15/19 08:00 Pulse 83 11/15/19 08:00 Resp 18 11/15/19 08:00 BP 137/85 11/15/19 08:00 Pulse Ox 96 11/15/19 08:00 11/14/19 11/15/19 11/15/19 22:59 06:59 14:59 Intake Total 0 / 600 Output Total 400 / 400 Balance -400 / 200 Physical Exam Narrative: EXAM NARRATIVE: General opens eyes, appears comfortable Cardiovascular regular rate and rhythm. Holosystolic murmur. Lungs clear today. Elevated respiratory rate noted Abdomen is soft, obese. No obvious tenderness Extremities no cyanosis clubbing or edema Urinary Catheter Management^: Arevalo: Cath Placed During This Visit: yes, but has since been removed by the nurse Reason for Continuing Indwelling Catheter: Hospice/Comfort/Palliative Care Urinary Catheter Date of Insertion: 11/10/19 Urinary Catheter Time of Insertion: 16:37 Date Urinary Catheter Removed: 11/10/19 Time Urinary Catheter Discontinued: 17:17 Data : 11/13/19 04:14 11/13/19 04:14 A&P Assessment and plan (1) Fever: Consistent with pneumonia. MRSA PCR negative Was on Zosyn and linezolid, but these have been discontinued as she has been moved to comfort measures. Urine and blood cultures have shown no growth. Covid 19 was negative. Status: Acute (2) Acute kidney injury: Renal function worsened while in the hospital and creatinine was up to 2.8 on last check November 12. Secondary to severity of renal function worsening and lower urine output this morning she is obviously prerenal. This is in the large part secondary to her severe aortic stenosis now found on echo. Consistent with cardiorenal syndrome Status: Acute (3) Dehydration: Present on admission. Now intravascular dry which is helped her heart failure significantly but worsened her renal function. Unfortunately the perfusion to her kidneys is poor secondary to severe aortic stenosis. Status: Acute (4) Encephalopathy acute: Continues. Status: Acute Additional A&P Information Acute systolic and valvular heart failure. Echocardiogram has been completed and demonstrates an ejection fraction of approximately 42%, 2/4 diastolic dysfunction and severe aortic valve stenosis with an approximate valve area of 0.44. Moderate mitral valve regurgitation is also noted. I have had a long discussion with her family this morning regarding the severity of the aortic stenosis, and secondary to her current and past mental status she is not a good candidate for any aortic valve replacement either by open procedure or TAVR. Family has moved her to comfort measures and these are being provided. At this point she has not been a candidate for transfer to shelter facility for comfort. Pelvic mass. Consider further outpatient work-up. Made family aware. Cardiac murmur. Consistent with aortic stenosis Dementia Hypothyroidism. Check TSH History of alcoholism Thrombocytopenia, anemia. Chronic Allow isnatural per her nursing facility records. She has transitioned to comfort measures. 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
[2019-11-16] VITALS (8 sets, daily range): BP systolic 113–139; BP diastolic 55–78; PULSE 73–84; RESP 16–24; TEMP 36.3–37.2; O2SAT 79–96
[2019-11-16] MEDS: LORazepam 2 mg/mL INJ 1 mL 1 MG PO ×2 (09:49→19:39)
--- NOTE | 2019-11-16 11:39 | P.PN_ITS ---
Subjective Subjective: Interval history: Chart reviewed, on comfort measures, received 1 dose of Ativan 1 mg overnight. No IV as has pulled out multiple ones. Arouses to verbal and tactile stimulation but non-verbal. Medications: Reviewed: Yes Medication Review Details: Active Medications Generic Name Dose Route Start Last Admin Trade Name Freq PRN Reason Stop Dose Admin Lorazepam 1 mg 11/13/19 17:38 11/16/19 09:49 Ativan PO 1 mg Q6H PRN Administration ANXIETY Morphine Sulfate 5 mg 11/13/19 17:38 11/16/19 09:48 Morphine Oral Li q Ud SUBLINGUAL 5 mg Q2H PRN Administration AIR HUNGER Ondansetron HCl 4 mg 11/10/19 21:07 Zofran IVP Q6H PRN vomiting, or N/V if npo No Known Allergies Allergy (Verified 11/10/19 15:54) Vitals/I&O/Wt Last Vital Signs Temp 97.5 F L 11/16/19 07:53 Pulse 74 11/16/19 07:53 Resp 16 11/16/19 07:53 BP 126/71 11/16/19 07:53 Pulse Ox 95 11/16/19 07:53 11/15/19 11/16/19 11/16/19 22:59 06:59 14:59 Output Total 375 / 375 250 / 625 Balance -375 / -375 -250 / -625 Physical Exam Const: COMMON NORMALS: no acute distress and alert GENERAL APPEARANCE: comfortable and frail appearing ORIENTATION/CONSCIOUSNESS: Yes awake HENMT: COMMON NORMALS: normocephalic and atraumatic HEAD & SCALP: normocephalic and atraumatic MOUTH: moist mucous membranes abnormal Details: parched TEETH & GINGIVA: Yes edentulous Eye: COMMON NORMALS: Equal, round and reactive pupils present, EOMs intact bilaterally and conjunctivae normal CONJUNCTIVA: Yes conjunctivae normal PUPIL: Yes Equal, round and reactive pupils present Neck/C-Spine: COMMON NORMALS: full ROM GENERAL: Yes normal visual inspection and Yes trachea midline Resp: COMMON NORMALS: normal respiratory effort, No retractions and No use of accessory muscles EFFORT & INSPECTION: Yes able to speak in complete se ntences, Yes symmetric chest movement and No tachypneic AUSCULTATION: crackles OTHER: -on 2 L NC Cardio: COMMON NORMALS: regular rate, regular rhythm, S1 normal heart sound present and S2 normal heart sound present RATE: regular rate RHYTHM: regular rhythm HEART SOUNDS: S1 normal heart sound present, S2 normal heart sound present and Murmur heart sound present systolic (holosystolic) GI: COMMON NORMALS: Normal to inspection, nondistended, normoactive bowel sounds present and Soft to palpation INSPECTION: Yes central obesity PALPATION: Yes Soft to palpation : BLADDER/KIDNEY EXAM: Yes catheter in place Catheter type (Female): urethral Extremity: COMMON NORMALS: normal to inspection, no clubbing, cyanosis or edema and no pedal edema Neuro: COMMON NORMALS: no focal motor deficits and no sensory deficits noted SENSORIUM/ORIENTATION: Yes alert Skin: COMMON NORMALS: no rashes or lesions noted, no jaundice, no petechiae and no mottling NARRATIVE SKIN EXAM: -extremities cool to touch GENERAL SKIN EXAM: no rashes or lesions noted Urinary Catheter Management^: Arevalo: Cath Placed During This Visit: yes, but has since been removed by the nurse Reason for Continuing Indwelling Catheter: Hospice/Comfort/Palliative Care Urinary Catheter Date of Insertion: 11/10/19 Urinary Catheter Time of Insertion: 16:37 Date Urinary Catheter Removed: 11/10/19 Time Urinary Catheter Discontinued: 17:17 Data : 11/13/19 04:14 11/13/19 04:14 Micro: Microbiology 11/10/19 15:34 Blood Culture - Final Blood NO GROWTH AFTER 5 DAYS 11/10/19 15:30 Blood Culture - Final Blood NO GROWTH AFTER 5 DAYS A&P Assessment and plan (1) Aortic stenosis, severe: -noted on Echo with approximate valve area of 0.44 cm2 -not a good surgical candidate given multiple comorbidities; family agreed to comfort measures Status: Acute (2) Acute CHF: -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 -Echo: EF=42%, G2DD, severe , moderate AR Status: Acute Qualifiers: Heart failure type: combined systolic and diastolic Qualified Code(s): I50.41 - Acute combined systolic (congestive) and diastolic (congestive) heart failure (3) Essential (primary) hypertension: -VSS Status: Chronic (4) Adult onset hypothyroidism: Status: Chronic (5) Acute kidney injury: -renal function worsened following diuresis -secondary to cardiorenal syndrome Status: Acute (6) Fever: -COVID-19 negative -MRSA PCR negative -noted RLL pneumonia on CXR -has been afebrile since 11/11 Status: Acute Qualifiers: Fever type: unspecified Qualified Code(s): R50.9 - Fever, unspecified Additional A&P Information -hx of EtOH abuse -Chronic anemia and thrombocytopenia -Dementia: Ativan PRN -Pelvic mass; family aware -on comfort measures -on CLD but not alert enough to consistently take PO intake currently -Code status: DNR/DNI Attestations Medical Necessity Statement*: Patient requires hospitalization for continued comfort measures. Time Spent in Patient Care: 16 - 35 minutes (>than 50% of time spent in counselling and/or direct pt care on unit) . Coding Level of Care Code Acute Collector Of Port for g Fwd Diagnoses Aortic stenosis, severe I35.0 Acute CHF I50.41 Heart failure type: combined systolic and diastolic Essential (primary) hypertension I10 Adult onset hypothyroidism E03.8 Acute kidney injury N17.9 Fever R50.9 Fever type: unspecified
[2019-11-17] VITALS (9 sets, daily range): BP systolic 109–142; BP diastolic 57–79; PULSE 71–84; RESP 12–24; TEMP 36.1–37.2; O2SAT 76–98
[2019-11-17] MEDS: LORazepam 2 mg/mL INJ 1 mL 1 MG PO ×4 (04:51→22:28)
--- NOTE | 2019-11-17 09:25 | PC.SOCIAL ---
IMM Updated Page 2 of IMM updated and given to patient. Initialed, dated, and timed and placed in chart.
--- NOTE | 2019-11-17 15:44 | PM.PN ---
Subjective Subjective: Interval history: Resting in bed, awakens easily to tactile and verbal stimulation, n.p.o. due to somnolence. Has been resting comfortably for most of the morning. Remains on comfort measures. Had 650 mL urine output overnight. Currently on 3 L nasal cannula with some noted intermittent hypoxia. Medications: Reviewed: Yes Medication Review Details: Active Medications Generic Name Dose Route Start Last Admin Trade Name Freq PRN Reason Stop Dose Admin Atropine Sulfate 4 drop 11/16/19 12:06 Isopto Atropine SUBLINGUAL Q2H PRN SECRETIONS Lorazepam 1 mg 11/16/19 12:06 11/17/19 13:22 Ativan PO 1 mg Q2H PRN Administration ANXIETY Morphine Sulfate 5 mg 11/16/19 12:06 11/17/19 13:20 Morphine Oral Li q Ud SUBLINGUAL 5 mg Q1H PRN Administration AIR HUNGER Ondansetron HCl 4 mg 11/10/19 21:07 Zofran IVP Q6H PRN vomiting, or N/V if npo No Known Allergies Allergy (Verified 11/10/19 15:54) Vitals/I&O/Wt Last Vital Signs Temp 98.1 F 11/17/19 15:26 Pulse 76 11/17/19 15:26 Resp 16 11/17/19 15:26 BP 128/68 11/17/19 15:26 Pulse Ox 76 L 11/17/19 11:55 11/17/19 11/17/19 11/17/19 06:59 14:59 22:59 Output Total 650 / 650 Balance -650 / -650 Physical Exam Const: COMMON NORMALS: no acute distress and alert GENERAL APPEARANCE: frail appearing NUTRITIONAL APPEARANCE: obese morbidly obese ORIENTATION/CONSCIOUSNESS: Yes awake OTHER: -restless HENMT: COMMON NORMALS: normocephalic and atraumatic HEAD & SCALP: normocephalic and atraumatic MOUTH: moist mucous membranes abnormal Details: parched TEETH & GINGIVA: Yes edentulous Eye: COMMON NORMALS: Equal, round and reactive pupils present, EOMs intact bilaterally and conjunctivae normal CONJUNCTIVA: Yes conjunctivae normal PUPIL: Yes Equal, round and reactive pupils present Neck/C-Spine: COMMON NORMALS: full ROM GENERAL: Yes normal visual inspection and Yes trachea midline Resp: COMMON NORMALS: normal respiratory effort, No retractions and No use of accessory muscles EFFORT & INSPECTION: Yes symmetric chest movement and No tachypneic AUSCULTATION: crackles OTHER: -on 3 L NC, intermittently hypoxic Cardio: COMMON NORMALS: regular rate, regular rhythm, S1 normal heart sound present and S2 normal heart sound present RATE: regular rate RHYTHM: regular rhythm HEART SOUNDS: S1 normal heart sound present, S2 normal heart sound present and Murmur heart sound present systolic (holosystolic) GI: COMMON NORMALS: Normal to inspection, nondistended, normoactive bowel sounds present and Soft to palpation INSPECTION: Yes central obesity PALPATION: Yes Soft to palpation : BLADDER/KIDNEY EXAM: Yes catheter in place Catheter type (Female): urethral Extremity: COMMON NORMALS: normal to inspection, no clubbing, cyanosis or edema and no pedal edema Neuro: COMMON NORMALS: no focal motor deficits and no sensory deficits noted SENSORIUM/ORIENTATION: Yes alert Psych: COMMON NORMALS: mental status grossly normal, Normal thought process present, cooperative, normal affect and speech normal SPEECH: Yes normal speech THOUGHT PROCESS: Normal thought process present Skin: COMMON NORMALS: no rashes or lesions noted, no jaundice, no petechiae and no mottling NARRATIVE SKIN EXAM: -extremities cool to touch GENERAL SKIN EXAM: no rashes or lesions noted Urinary Catheter Management^: Arevalo: Cath Placed During This Visit: yes, but has since been removed by the nurse Reason for Continuing Indwelling Catheter: Hospice/Comfort/Palliative Care Urinary Catheter Date of Insertion: 11/10/19 Urinary Catheter Time of Insertion: 16:37 Date Urinary Catheter Removed: 11/10/19 Time Urinary Catheter Discontinued: 17:17 Data : 11/13/19 04:14 11/13/19 04:14 A&P Assessment and plan (1) Aortic stenosis, severe: -noted on Echo with approximate valve area of 0.44 cm2 -not a good surgical candidate given multiple comorbidities; family agreed to comfort measures Status: Acute (2) Acute CHF: -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 -Echo: EF=42%, G2DD, severe , moderate AR Status: Acute Qualifiers: Heart failure type: combined systolic and diastolic Qualified Code(s): I50.41 - Acute combined systolic (congestive) and diastolic (congestive) heart failure (3) Essential (primary) hypertension: -VSS Status: Chronic (4) Adult onset hypothyroidism: Status: Chronic (5) Acute kidney injury: -renal function worsened following diuresis -secondary to cardiorenal syndrome Status: Acute (6) Fever: -COVID-19 negative -MRSA PCR negative -noted RLL pneumonia on CXR -has been afebrile since 11/11 Status: Acute Qualifiers: Fever type: unspecified Qualified Code(s): R50.9 - Fever, unspecified Additional A&P Information -hx of EtOH abuse -Chronic anemia and thrombocytopenia -Dementia: Ativan PRN -Pelvic mass; family aware -on comfort measures -on CLD but not alert enough to consistently take PO intake currently -Code status: DNR/DNI Attestations Medical Necessity Statement*: Patient requires hospitalization for continued comfort measures. Time Spent in Patient Care: 16 - 35 minutes (>than 50% of time spent in counselling and/or direct pt care on unit). Coding Level of Care Code Acute Blown Film Extrusion Operator for g Fwd Diagnoses Aortic stenosis, severe I35.0 Acute CHF I50.41 Heart failure type: combined systolic and diastolic Essential (primary) hypertension I10 Adult onset hypothyroidism E03.8 Acute kidney injury N17.9 Fever R50.9 Fever type: unspecified
[2019-11-18] VITALS (7 sets, daily range): BP systolic 98–115; BP diastolic 62–77; PULSE 78–97; RESP 12–18; TEMP 35.7–37.3; O2SAT 94
[2019-11-18] MEDS: LORazepam 2 mg/mL INJ 1 mL 1 MG PO ×6 (04:48→18:55)
--- NOTE | 2019-11-18 11:20 | P.PN_ITS ---
Subjective Subjective: Interval history: Patient decompensated further overnight, no apparent distress, granddaughter Yashira at bedside, had 200 mL urine output overnight. VSS. Medications: Reviewed: Yes Medication Review Details: Active Medications Generic Name Dose Route Start Last Admin Trade Name Freq PRN Reason Stop Dose Admin Atropine Sulfate 4 drop 11/16/19 12:06 Isopto Atropine SUBLINGUAL Q2H PRN SECRETIONS Lorazepam 1 mg 11/16/19 12:06 11/18/19 07:53 Ativan PO 1 mg Q2H PRN Administration ANXIETY Morphine Sulfate 5 mg 11/17/19 17:28 11/18/19 07:56 Morphine Oral Li q Ud SUBLINGUAL 5 mg Q15M PRN Administration AIR HUNGER Ondansetron HCl 4 mg 11/10/19 21:07 Zofran IVP Q6H PRN vomiting, or N/V if npo No Known Allergies Allergy (Verified 11/10/19 15:54) Vitals/I&O/Wt Last Vital Signs Temp 96.2 F L 11/18/19 04:00 Pulse 78 11/18/19 04:00 Resp 16 11/18/19 08:00 BP 115/77 11/18/19 04:00 Pulse Ox 94 11/18/19 04:00 11/17/19 11/18/19 11/18/19 22:59 06:59 14:59 Output Total 350 / 350 200 / 550 Balance -350 / -350 -200 / -550 Physical Exam Const: COMMON NORMALS: no acute distress GENERAL APPEARANCE: frail appearing NUTRITIONAL APPEARANCE: obese morbidly obese OTHER: -resting in bed HENMT: COMMON NORMALS: normocephalic and atraumatic HEAD & SCALP: normocephalic and atraumatic MOUTH: moist mucous membranes abnormal Details: parched TEETH & GINGIVA: Yes edentulous Eye: COMMON NORMALS: Equal, round and reactive pupils present, EOMs intact bilaterally and conjunctivae normal CONJUNCTIVA: Yes conjunctivae normal PUPIL: Yes Equal, round and reactive pupils present Neck/C-Spine: COMMON NORMALS: full ROM GENERAL: Yes normal visual inspection and Yes trachea midline Resp: COMMON NORMALS: normal respiratory effort, No retractions and No use of accessory muscles EFFORT & INSPECTION: Yes symmetric chest movement and No tachypneic AUSCULTATION: crackles OTHER: -on 3 L NC, intermittently hypoxic Cardio: COMMON NORMALS: regular rate, regular rhythm, S1 normal heart sound present and S2 normal heart sound present RATE: regular rate RHYTHM: regular rhythm HEART SOUNDS: S1 normal heart sound present, S2 normal heart sound present and Murmur heart sound present systolic (holosystolic) GI: COMMON NORMALS: Normal to inspection, nondistended, normoactive bowel sounds present and Soft to palpation INSPECTION: Yes central obesity PALPATION: Yes Soft to palpation : BLADDER/KIDNEY EXAM: Yes catheter in place Catheter type (Female): urethral Extremity: COMMON NORMALS: normal to inspection, no clubbing, cyanosis or edema and no pedal edema Neuro: COMMON NORMALS: no focal motor deficits and no sensory deficits noted Psych: COMMON NORMALS: mental status grossly normal, Normal thought process present, cooperative, normal affect and speech normal SPEECH: Yes normal speech THOUGHT PROCESS: Normal thought process present Skin: COMMON NORMALS: no rashes or lesions noted, no jaundice, no petechiae and no mottling NARRATIVE SKIN EXAM: -extremities cool to touch GENERAL SKIN EXAM: no rashes or lesions noted Urinary Catheter Management^: Arevalo: Cath Placed During This Visit: yes, but has since been removed by the nurse Reason for Continuing Indwelling Catheter: Hospice/Comfort/Palliative Care Urinary Catheter Date of Insertion: 11/10/19 Urinary Catheter Time of Insertion: 16:37 Date Urinary Catheter Removed: 11/10/19 Time Urinary Catheter Discontinued: 17:17 Data : 11/13/19 04:14 11/13/19 04:14 A&P Assessment and plan (1) Aortic stenosis, severe: -noted on Echo with approximate valve area of 0.44 cm2 -not a good surgical candidate given multiple comorbidities; family agreed to comfort measures Status: Acute (2) Acute CHF: -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 -Echo: EF=42%, G2DD, severe , moderate AR Status: Acute Qualifiers: Heart failure type: combined systolic and diastolic Qualified Code(s): I50.41 - Acute combined systolic (congestive) and diastolic (congestive) heart failure (3) Essential (primary) hypertension: -VSS Status: Chronic (4) Adult onset hypothyroidism: Status: Chronic (5) Acute kidney injury: -renal function worsened following diuresis -secondary to cardiorenal syndrome Status: Acute (6) Fever: -COVID-19 negative -MRSA PCR negative -noted RLL pneumonia on CXR -has been afebrile since 11/11 Status: Acute Qualifiers: Fever type: unspecified Qualified Code(s): R50.9 - Fever, unspecified Additional A&P Information -hx of EtOH abuse -Chronic anemia and thrombocytopenia -Dementia: Ativan PRN -Pelvic mass; family aware -on comfort measures -NPO as not alert enough to consistently take PO intake currently -Code status: DNR/DNI Attestations Medical Necessity Statement*: Patient requires hospitalization for continued comfort measures. Time Spent in Patient Care: 16 - 35 minutes (>than 50% of time spent in counselling and/or direct pt care on unit) . Coding Level of Care Code Acute Tube Rebuilder for g Fwd Diagnoses Aortic stenosis, severe I35.0 Acute CHF I50.41 Heart failure type: combined systolic and diastolic Essential (primary) hypertension I10 Adult onset hypothyroidism E03.8 Acute kidney injury N17.9 Fever R50.9 Fever type: unspecified
--- NOTE | 2019-11-18 16:42 | PC.NURSE ---
Patient's family visited today. Edmond stated that he has spoken with [facility] in [place] and to call them when patient passes. [phone].
[2019-11-19 04:00] VITALS: RESP 12
--- NOTE | 2019-11-19 06:00 | PC.NURSE ---
Patient at 0547, Supervisor Drying And Softening, Dr. Greene, and Jaz on contact list, during phone conversation Jaz states Edmond is not home due to camping with his daughter, she will go find him and call the floor back within the hour to let us know if they will be coming to view patient while in the hospital or once released to [facility] in [place], [place].
--- NOTE | 2019-11-19 06:20 | PC.NURSE ---
Patient Arevalo removed, zero iv in place, patient is clean as well as linens. Patient with ring in place to left hand forth digit. continue to await family notification.
--- NOTE | 2019-11-19 07:01 | PC.NURSE ---
Jaz called back and wishes to go ahead and have [facility] home come and get patient, Edmond does not wish to remember her as she is now. Call placed to [facility]'s home. Consent to release body to home.
--- NOTE | 2019-11-19 07:53 | P.DES_ITS ---
Discharge Providers DDS Date of Admission: 11/10/19 18:21 Date Summary Completed: 11/19/19 Attending Provider at Admission: Pako Rodriguez MD Time of : 05:47 Attending Provider at Discharge: Aline Lizama MD Consults: None Primary Care Provider: [facility] Diagnoses (1) Aortic stenosis, severe: (2) Acute CHF: Qualifiers: Heart failure type: combined systolic and diastolic Qualified Code(s): I50.41 - Acute combined systolic (congestive) and diastolic (congestive) heart failure (3) Essential (primary) hypertension: (4) Adult onset hypothyroidism: (5) Acute kidney injury: (6) Fever: Qualifiers: Fever type: unspecified Qualified Code(s): R50.9 - Fever, unspecified Reason for Visit Reason for Visit: FEVER Summary Date and Time of : Date of : 11/19/19 Time of : 05:47 Summary: Summary: Patient was admitted to medical surgical floor and started on broad-spectrum IV antibiotics secondary to finding of pneumonia on imaging. She was screened for COVID-19 which was negative. She also presented with acute kidney injury that continued to worsen particularly with diuresis which was initiated due to acute CHF exacerbation. Echo was done with noted severe aortic stenosis and noted ejection fraction of 42% and 2 diastolic dysfunction. Given patient's overall frailty and advanced age as well as underlying comorbidities, she is not a good candidate for aggressive management of aortic stenosis. With continued worsening her renal function with development of cardiorenal syndrome, persistent encephalopathy, family made decision to transition her to comfort measures. She at 0547 this morning, family notified at time of passing. Additional Data: Advance directives?: No Discharge Plan Discharge Patient Disposition: Condition: Prescriptions: No Action amlodipine 5 mg tablet 5 mg PO QDAY RF: 0 cetirizine 10 mg capsule 10 mg PO DAILY RF: 0 diclofenac sodium 1 % gel 2 gm TOPICAL Q12H PRN (Reason: unknown) RF: 0 folic acid 1 mg tablet 1 mg PO DAILY RF: 0 furosemide 20 mg tablet 20 mg PO QAM RF: 0 levothyroxine [Synthroid] 25 mcg tablet 25 mcg PO QDAY RF: 0 multivitamin [Daily Multi-Vitamin] Tablet 1 tab PO QAM RF: 0 risperidone 0.5 mg tablet 0.5 mg PO QDAY RF: 0 sertraline 50 mg tablet 50 mg PO QDAY RF: 0 thiamine HCl (vitamin B1) 100 mg tablet 100 mg PO QDAY RF: 0 cyanocobalamin (vitamin B-12) [Vitamin B-12] 1,000 mcg tablet 1,000 mcg PO QDAY RF: 0 ergocalciferol (vitamin D2) [Drisdol] 50,000 unit capsule 50,000 unit PO .monthly RF: 0 acetaminophen 500 mg capsule 500 mg PO Q6H PRN (Reason: fever/pain) RF: 0 cyclobenzaprine 10 mg tablet 10 mg PO Q8H RF: 0 ibuprofen 400 mg tablet 400 mg PO Q8H PRN (Reason: pain) RF: 0 guaifenesin [Tussin] 100 mg/5 mL liquid 200 mg PO Q4H PRN (Reason: Cough) RF: 0 triamcinolone acetonide 0.1 % cream 1 applic TOPICAL QDAY RF: 0 Tylenol-Codeine #3 300-30 mg Tablet 1 tab PO Q4H PRN (Reason: fever/pain) RF: 0 [facility] [[facility]] Anastacio Dias, [employer] [Primary Care Provider] - DS Attestations Time Spent in /Discharge Care*: less than 30 min Quality - AMI: AMI present?: No Quality - Stroke: CVA present?: No Quality - VTE: VTE present?: No Deep Vein Thrombosis/Pulmonary Embolism Present on Admission: No Coding Level of Care Code Acute [employer] for [employer] Diagnoses Aortic stenosis, severe I35.0 Acute CHF I50.41 Heart failure type: combined systolic and diastolic Essential (primary) hypertension I10 Adult onset hypothyroidism E03.8 Acute kidney injury N17.9 Fever R50.9 Fever type: unspecified
--- NOTE | 2019-11-19 09:00 | PC.NURSE ---
[facility] picked up patient at this time.
== END 2019-11-19 09:00 | disposition expired | DRG 193 ==
LOC: ER 19:00 → MEDSURG 19:22
PROVIDERS: Admitting Provider Internal Medicine; Emergency Provider Emergency Medicine; Family Provider Nurse Practitioner; PCP Nurse Practitioner; Visit Provider Family Medicine
DX: J18.9 Pneumonia, unspecified organism (principal); I50.21 Acute systolic (congestive) heart failure; N17.9 Acute kidney failure, unspecified; G93.40 Encephalopathy, unspecified; E86.0 Dehydration; I35.0 Nonrheumatic aortic (valve) stenosis; I10 Essential (primary) hypertension; E03.9 Hypothyroidism, unspecified; Z11.59 Encounter for screening for other viral diseases; Z51.5 Encounter for palliative care; Z87.891 Personal history of nicotine dependence
CPT/HCPCS: 12345; 36415; 51702; 51798; 70450; 71045; 71260; 74177; 80053; 81001; 81003; 82140; 83605; 83880; 84145; 84443; 85025; 85651; 86140; 87040; 87086; 87635; 87641; 93005; 93306; 94640; 96372; 96375; 99284; J1644; J1940; J2020; J2060; J2543; J3370; J3490; J7030; J7050; Q9967